=== PATIENT | female | born 1990 | race African-American/Black ===

== ENCOUNTER 2019-07-31 19:53 | Emergency (ER) | payer SELFPAY ==
[~2019-07-31] VITALS: Ht 167.6 cm; Wt 90.3 kg
[2019-07-31] MEDS ORDERED: HYDROcodone-ACET 5/325MG TAB PO ONE (20:30)
[2019-07-31] MEDS ORDERED: cloNIDine HCL 0.1 MG TAB PO ONE (20:30)
[2019-07-31 21:12] LABS: Basophils # (auto) 0.1 10 ^3/uL (0-0.2); Basophils % (auto) 0.7 % (0.0-2.0); Eosinophils # (auto) 0.2 10 ^3/uL (0-0.8); Eosinophils % (auto) 2.2 % (0.0-7.0); Hematocrit 41.1 % (36.0-46.0); Hemoglobin 13.4 g/dL (12.2-16.2); Lymphocytes # (auto) 3.3 10 ^3/uL (0.4-5.4); Lymphocytes % (auto) 36.7 % (10.0-50.0); Mean Corpuscular Hemoglobin 27.4 pg (28.0-32.0); Mean Corpuscular Hgb Conc. 32.6 g/dL (32.0-36.0); Monocytes # (auto) 0.9 10 ^3/uL (0-1.3); Neutrophils # (auto) 4.6 10 ^3/uL (1.6-8.6); Neutrophils % (auto) 50.4 % (37.0-80.0); Nucleated Red Blood Cells % 0.2 %; Platelet Count (auto) 245 10^3/uL (140-450); Red Cell Distribution Width 14.7 % (11.8-14.3); White Blood Cell 9.1 10^3/uL (4.4-10.8)
[2019-07-31 21:24] LABS: Albumin 3.4 g/dL (3.4-5.0); Anion Gap 6 (5-15); Blood Urea Nitrogen 7 mg/dL (7-18); Calcium 8.5 mg/dL (8.5-10.1); Carbon Dioxide 27 mmol/L (21-32); Chloride 105 mmol/L (98-107); Glucose 98 mg/dL (74-106); Potassium 3.6 mmol/L (3.5-5.1); Sodium 138 mmol/L (136-145)
[2019-07-31 21:30] LABS: Alanine Aminotransferase 20 U/L (13-56); Alkaline Phosphatase 64 U/L (45-117); Aspartate Aminotransferase 12 U/L (15-37); BUN/Creatinine Ratio 9.6; Bilirubin, Total 0.3 mg/dL (0.2-1.0); GFR African American 123 mL/min; GFR Non-African American 102 mL/min; Total Protein 7.6 g/dL (6.4-8.2)
[2019-07-31 21:49] LABS: Urine Bacteria NONE SEEN /hpf (None Seen); Urine Blood Negative /uL (Negative); Urine Specific Gravity 1.007 (1.001-1.035); Urine WBC 1 /hpf (0 - 5)
[2019-07-31] MEDS ORDERED: hydrALAZINE HCL 20 MG/ML VL IV ONE (22:00)
[2019-07-31] MEDS ORDERED: HYDROcodone-ACET 10/325MG TAB PO ONE (23:30)
[2019-07-31] MEDS ORDERED: hydrALAZINE HCL 20 MG/ML VL IV PRN (23:30)
[2019-07-31] MEDS: cloNIDine HCL 0.1 MG TAB PO SCH (23:30)
[2019-08-01] MEDS: cloNIDine HCL 0.1 MG TAB PO SCH (06:00)
[2019-08-01 06:14] VITALS: BP 156/96
== END 2019-08-01 06:25 | disposition home or self-care (01) ==
LOC: ER 19:55
DX: I10 Essential (primary) hypertension (principal); R51 Headache; F17.210 Nicotine dependence, cigarettes, uncomplicated
CPT/HCPCS: 36415; 70450; 71045; 80053; 81001; 81025; 83735; 84484; 85025; 93005; 96374; 99285; J0360